=== PATIENT | female | born 1985 | race Caucasian/White ===

== ENCOUNTER 2025-06-28 09:46 | Outpatient (CLI) | payer OTHER, SELFPAY ==
--- NOTE | 2025-06-28 09:40 | MM_ITS ---
WS: [id number] BILATERAL 3D TOMOSYNTHESIS DIGITAL SCREENING MAMMOGRAPHY WITH CAD CLINICAL INFORMATION: SCREENING HISTORY: Screening mammogram. No current complaints. COMPARISON: Baseline TECHNIQUE: Bilateral CC and MLO views. FINDINGS: Scattered fibroglandular densities bilaterally. Punctate calcifications in the ductal distribution anterior RIGHT breast. Recommend further evaluation with spot magnification views. Unremarkable LEFT breast. MM/MM scr BI tomosynthesis [id number] IMPRESSION: DENSITY: There are scattered areas of fibroglandular density. BI-RADS: 0 - Incomplete: Need additional imaging evaluation. FOLLOW UP: Need Additional Imaging Recommend spot magnification views of the RIGHT breast calcifications
== END 2025-06-28 09:47 | disposition home or self-care (01) ==
LOC: MOBLMAM 09:50
PROVIDERS: PCP Nurse Practitioner Family; Visit Provider Nurse Practitioner Family
DX: Z12.31 Encounter for screening mammogram for malignant neoplasm of breast (principal)
CPT/HCPCS: 77063; 77067